=== PATIENT | female | born 1975 | race Caucasian/White ===

== ENCOUNTER 2020-07-27 17:49 | Inpatient (IN) | payer SELFPAY ==
[2020-07-27] MEDS ORDERED: HYDROmorphone 0.5 MG/0.5 ML Syringe IVPUSH ONE (19:01)
--- NOTE | 2020-07-27 19:04 | EDM.PDOC ---
ED HPI GENERAL MEDICAL PROBLEM - General Chief Complaint: Abdominal Pain Stated Complaint: ABD PAIN Time Seen by Provider: 07/27/20 18:50 Source of Information: Reports: Patient History Limitations: Reports: No Limitations - History of Present Illness INITIAL COMMENTS - FREE TEXT/NARRATIVE: 45-year-old female with lower abdominal pain for the past 2 days, localizing to the right lower quadrant. Decreased appetite, no fevers or chills, no significant bowel changes. She has type II diabetes and has been out of some of her medicines for the past 1 to 2 weeks while changing over insurance. Minimal nausea, no vomiting, no shortness of breath or chest pain. No urinary symptoms. Onset: Gradual Duration: Day(s): (2 days) Location: Reports: Abdomen (Right lower quadrant) Associated Symptoms: Reports: Other (Mild nausea). Denies: Fever/Chills Right Upper Abdominal Pain Score (Numeric/FACES): 3 - Related Data Allergies Allergy/AdvReac Type Severity Reaction Status Date / Time No Known Allergies Allergy Verified 07/27/20 18:37 Home Meds: Home Meds Empagliflozin [Jardiance] 10 mg PO DAILY 07/27/20 [History] Gabapentin [Neurontin] 900 mg PO BEDTIME 07/27/20 [History] Metoclopramide [Reglan] 5 mg PO BID 07/27/20 [History] SitaGLIPtin [Januvia] 100 mg PO DAILY 07/27/20 [History] atorvaSTATin [Lipitor] 40 mg PO BEDTIME 07/27/20 [History] glipiZIDE [Glucotrol] 10 mg PO BID 07/27/20 [History] lisinopriL [Lisinopril] 10 mg PO DAILY 07/27/20 [History] metFORMIN [Glucophage] 1,000 mg PO BIDMEALS 07/27/20 [History] Past Medical History Cardiovascular History: Reports: High Cholesterol, Hypertension Respiratory History: Reports: None Gastrointestinal History: Reports: Cholelithiasis, Other (See Below) Other Gastrointestinal History: umbilical hernia Genitourinary History: Reports: None 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 , Musculoskeletal History: Reports: Fracture Neurological History: Reports: None Psychiatric History: Reports: None Endocrine/Metabolic History: Reports: Diabetes, Type II, Obesity/BMI 30+ Hematologic History: Reports: None Immunologic History: Reports: None Oncologic (Cancer) History: Reports: None Dermatologic History: Reports: Other (See Below) Other Dermatologic History: skin rashes and yeast infections - Infectious Disease History Infectious Disease History: Reports: Chicken Pox - Past Surgical History HEENT Surgical History: Reports: Oral Surgery GI Surgical History: Reports: Cholecystectomy Female Surgical History: Reports: Section, Salpingo-Oophorectomy Social & Family History - Tobacco Use Tobacco Use Status *Q: Current Every Day Tobacco User Years of Tobacco use: 20 Packs/Tins Daily: 0.5 - Caffeine Use Caffeine Use: Reports: Coffee - Recreational Drug Use Recreational Drug Use: No ED ROS GENERAL - Review of Systems Review Of Systems: See Below Constitutional: Reports: Malaise. Denies: Fever, Chills HEENT: Reports: No Symptoms Respiratory: Denies: Shortness of Breath Cardiovascular: Denies: Chest Pain GI/Abdominal: Reports: Abdominal Pain, Nausea. Denies: Constipation, Diarrhea, Vomiting : Reports: No Symptoms Skin: Reports: No Symptoms Neurological: Reports: No Symptoms ED EXAM, GI/ABD - Physical Exam Exam: See Below Exam Limited By: No Limitations General Appearance: Alert, No Apparent Distress (Looks mildly uncomfortable but in no distress) Eyes: Bilateral: Normal Appearance (No jaundice) Head: Atraumatic Respiratory/Chest: Lungs Clear Cardiovascular: Regular Rate, Rhythm GI/Abdominal Exam: Normal Bowel Sounds, Soft, Guarding (Patient has guarding and significant rebound tenderness in the right lower quadrant), Rebound Neurological: Alert, Oriented Course - Vital Signs Last Recorded V/S: Last Vital Signs Temp 96.1 F L 07/27/20 22:11 Pulse 58 L 07/27/20 22:11 Resp 16 07/27/20 22:11 BP 124/69 07/27/20 22:11 Pulse Ox 97 07/27/20 22:11 - Orders/Labs/Meds Orders: Medication Orders Hydromorphone HCl (Dilaudid) 0.5 mg IVPUSH Q2H PRN PRN Reason: PAIN Dextrose/Lactated Ringer's (Dextrose 5%-Lactated Ringers) 1,000 mls @ 125 mls/hr IV ASDIRECTED [facility], [facility] Last Admin: 07/27/20 21:01 Dose: 125 mls/hr Documented by: LUIZROB Ampicillin Sodium/Sulbactam (Sodium 3 gm/ Sodium Chloride) 100 mls @ 200 mls/hr IV Q6H [facility] Last Admin: 07/27/20 21:38 Dose: Not Given Documented by: KARMEN Aztreonam 1 gm/ Sodium (Chloride) 50 mls @ 100 mls/hr IV Q8H [facility] Last Admin: 07/27/20 21:53 Dose: 100 mls/hr Documented by: KARMEN Sodium Chloride (Saline Flush) 10 ml FLUSH ASDIRECTED PRN PRN Reason: LINE PATENCY Labs: Laboratory Tests 07/27/20 07/27/20 Range/Units 19:16 19:16 WBC 12.1 H (4.5-11.0) K/uL RBC 4.98 (3.30-5.50) M/uL Hgb 13.7 (12.0-15.0) g/dL Hct 43.8 (36.0-48.0) % MCV 88 (80-98) fL MCH 28 (27-31) pg MCHC 31 L (32-36) % Plt Count 308 (150-400) K/uL Neut % (Auto) 64 (36-66) % Lymph % (Auto) 26 (24-44) % [place] % (Auto) 6 (2-6) % Eos % (Auto) 3 (2-4) % Baso % (Auto) 1 (0-1) % Sodium 139 L (140-148) mmol/L Potassium 3.9 (3.6-5.2) mmol/L Chloride 103 (100-108) mmol/L Carbon Dioxide 26 (21-32) mmol/L Anion Gap 13.9 (5.0-14.0) mmol/L BUN 12 (7-18) mg/dL Creatinine 0.9 (0.6-1.0) mg/dL Est Cr Clr Drug Dosing 57.89 mL/min Estimated GFR (MDRD) > 60 (>60) Glucose 96 (74-106) mg/dL Calcium 9.1 (8.5-10.1) mg/dL Total Bilirubin 0.9 (0.2-1.0) mg/dL AST 10 L (15-37) U/L ALT 20 (12-78) U/L Alkaline Phosphatase 48 (46-116) U/L Total Protein 7.3 (6.4-8.2) g/dL Albumin 3.3 L (3.4-5.0) g/dL Globulin 4.0 H (2.3-3.5) g/dL Albumin/Globulin Ratio 0.8 L (1.2-2.2) Lipase 71 L (73-393) U/L Meds: Medications Generic Name Dose Route Start Last Admin Trade Name Jamal PRN Reason Stop Dose Admin Hydromorphone HCl 0.5 mg 07/27/20 20:47 Dilaudid IVPUSH Q2H PRN PAIN Dextrose/Lactated Ringer's 1,000 mls @ 125 mls/hr 07/27/20 20:45 07/27/20 21:01 Dextrose 5%-Lactated Ringers IV 125 mls/hr ASDIRECTED MICHAEL Administration Ampicillin Sodium/Sulbactam 100 mls @ 200 mls/hr 07/27/20 22:00 07/27/20 21:38 Sodium 3 gm/ Sodium Chloride IV Not Given Q6H MICHAEL Aztreonam 1 gm/ Sodium 50 mls @ 100 mls/hr 07/27/20 21:30 07/27/20 21:53 Chloride IV 100 mls/hr Q8H MICHAEL Administration Sodium Chloride 10 ml 07/27/20 21:24 Saline Flush FLUSH ASDIRECTED PRN LINE PATENCY Discontinued Medications Generic Name Dose Route Start Last Admin Trade Name Jaaml PRN Reason Stop Dose Admin Hydromorphone HCl 0.5 mg 07/27/20 19:01 07/27/20 19:24 Dilaudid IVPUSH 07/27/20 19:02 0.5 mg ONETIME ONE Administration Sodium Chloride 1,000 mls @ 250 mls/hr 07/27/20 19:15 Normal Saline IV ASDIRECTED MICHAEL Ampicillin Sodium/Sulbactam 100 mls @ 200 mls/hr 07/27/20 20:12 07/27/20 21:04 Sodium 3 gm/ Sodium Chloride IV 07/27/20 20:41 200 mls/hr ONETIME ONE Administration Aztreonam 1 gm/ Sodium 50 mls @ 100 mls/hr 07/27/20 20:12 07/27/20 21:38 Chloride IV 07/27/20 20:41 Not Given ONETIME ONE Aztreonam 1 gm/ Sodium 50 mls @ 100 mls/hr 07/27/20 21:00 Chloride IV Q8H MICHAEL - Re-Assessments/Exams Free Text/Narrative Re-Assessment/Exam: 07/27/20 19:03 An IV will be started she will be given 0.5 mg of IV Dilaudid, CBC CMP lipase drawn. She will need a CT to rule out appendicitis. 07/27/20 22:53 IMPRESSION: Acute appendicitis without evidence of abscess/free air. No other acute abnormalities identified. Status post cholecystectomy. White count was just over 12,[address] confirmed appendicitis. She was given IV Unasyn and Azactam after discussing her case with Dr. Gotti. She will be admitted for presumptive appendectomy in the morning. Departure - Departure Time of Disposition: 21:42 Disposition: Admitted As Inpatient 68 Clinical Impression: Abdominal pain Qualifiers: Abdominal location: right lower quadrant Qualified Code(s): R10.31 - Right lower quadrant pain Appendicitis Qualifiers: Appendicitis type: acute appendicitis Acute appendicitis type: with localized peritonitis Appendicitis gangrene presence: without gangrene Appendicitis perforation presence: without perforation Appendicitis abscess presence: without abscess Qualified Code(s): K35.30 - Acute appendicitis with localized peritonitis, without perforation or gangrene - Discharge Information Sepsis Event Note (ED) - Evaluation Sepsis Screening Result: No Definite Risk - Focused Exam Vital Signs: Vital Signs Temp Pulse Resp BP Pulse Ox 07/27/20 18:33 97.8 F 67 16 146/71 H 98 07/27/20 18:12 97.8 F 67 16 146/71 H 98
[2020-07-27] MEDS ORDERED: Sodium Chloride 0.9% 1,000 ML IV SCH (19:15)
[2020-07-27] MEDS ORDERED: Ampicillin/Sulbactam Na 3 GM in Sodium Chloride 0.9% 100 ML IV ONE (20:12)
--- NOTE | 2020-07-27 20:13 | CRLCT ---
INDICATION: Right lower quadrant pain TECHNIQUE: CT abdomen and pelvis acquired without IV contrast. COMPARISON: None FINDINGS: Lower chest: Unremarkable. Liver: Unremarkable. Spleen: Unremarkable. Pancreas: Unremarkable. Gallbladder and bile ducts: Cholecystectomy. There is no biliary enlargement. Kidneys: Unremarkable. Adrenal glands: Unremarkable. GI tract: Appendix is abnormal. It is enlarged, with wall thickening and surrounding stranding/inflammatory change. This is consistent with acute appendicitis. Appendix best visualized on coronal images 16 through 26 of series 3. No appendicoliths identified. No evidence of abscess. No free air. Otherwise, bowel gas pattern is unremarkable. No evidence of obstruction. Vascular structures: Negative. No sign of aneurysm. Lymph nodes: Unremarkable. Miscellaneous: Small fat containing periumbilical hernia. No free air or significant free fluid. Pelvic Organs: Unremarkable. Bones: Unremarkable for age. IMPRESSION: Acute appendicitis without evidence of abscess/free air. No other acute abnormalities identified. Status post cholecystectomy. Please note that all CT scans at this facility use dose modulation, iterative reconstruction, and/or weight-based dosing when appropriate to reduce radiation dose to as low as reasonably achievable. Dictated by Chris Almanzar MD @ Jul 27 2020 8:01PM Signed by Dr. Chris Almanzar @ Jul 27 2020 8:12PM
[2020-07-27] MEDS ORDERED: HYDROmorphone 0.5 MG/0.5 ML Syringe IVPUSH PRN (20:47)
[2020-07-27] MEDS: Dextrose 5%-Lactated Ringers 1,000 ML IV SCH (21:01)
[2020-07-27] MEDS ORDERED: Sodium Chloride 0.9% 10 ML Syringe FLUSH PRN (21:24)
[2020-07-27] MEDS: Ampicillin/Sulbactam Na 3 GM in Sodium Chloride 0.9% 100 ML IV SCH (21:38)
[2020-07-28] MEDS: Ampicillin/Sulbactam Na 3 GM in Sodium Chloride 0.9% 100 ML IV SCH ×4 (03:12→23:11)
[2020-07-28] MEDS ORDERED: Bupivacaine 0.5% 50 ML MDV ONE (06:47)
[2020-07-28] MEDS ORDERED: Lidocaine 1% with EPINEPHrine 1:100,000 50 ML MDV ONE (06:47)
[2020-07-28] MEDS ORDERED: fentaNYL 250 MCG/5 ML SDV ONE (06:55)
[2020-07-28] MEDS ORDERED: Rocuronium 50 MG/5 ML Vial ONE (06:56)
[2020-07-28] MEDS ORDERED: Propofol 200 MG/20 ML SDV ONE (06:56)
[2020-07-28] MEDS ORDERED: Dexamethasone 4 MG/ML SDV ONE (06:56)
[2020-07-28] MEDS ORDERED: Glycopyrrolate 0.2 MG/ML 5 ML MDV ONE (06:56)
[2020-07-28] MEDS ORDERED: Succinylcholine 200 MG/10 ML MDV ONE (06:56)
[2020-07-28] MEDS ORDERED: Neostigmine Methylsulfate 1 MG/ML 5 ML Syringe ONE (06:56)
[2020-07-28] MEDS ORDERED: Ondansetron 4 MG/2 ML SDV ONE (06:56)
[2020-07-28] MEDS: Dextrose 5%-Lactated Ringers 1,000 ML IV SCH ×3 (07:27→23:16)
[2020-07-28] MEDS ORDERED: Ropivacaine 50 ML, dexAMETHasone 8 MG, EPINEPHrine 0.4 MG, Sodium Chloride 0.9% 27.6 ML NERVRT SCH ×4 (08:30)
[2020-07-28] MEDS ORDERED: ePHEDrine 50 MG/ML SDV ONE (08:41)
[2020-07-28] MEDS ORDERED: Sodium Chloride 0.9% 10 ML ONE (08:41)
--- NOTE | 2020-07-28 08:59 | PN ---
DATE OF SERVICE: 07/28/2020 SUBJECTIVE: Sugey has her consent signed for laparoscopic possible open laparotomy. She was admitted last evening. She is first case. Vital signs have been stable. Blood sugars have been monitored. She reports her pain on a pain scale of 1 to 10 is a zero. 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 REVIEW OF SYSTEMS: Remainder of review of systems negative for any pertinent positives and negatives. OBJECTIVE: GENERAL: Sugey Lou is a pleasant, 45-year-old female, alert, orientated. HEENT: Negative. NECK: Supple. HEART: Regular rate and rhythm. LUNGS: Clear. ABDOMEN: There is tenderness noted in the right lower quadrant. EXTREMITIES: Without peripheral edema. NEUROLOGIC: Intact. PSYCHIATRIC: Mood and affect appropriate. ASSESSMENT: Acute appendicitis. PLAN: After preoperative evaluation and discussion of possible risks and possible complications, she wished to proceed with surgical procedure. Orders to be written postoperatively. Frances Graham PA-C /[id number]
[2020-07-28] MEDS ORDERED: Acetaminophen 1,000 MG in Premix Bag 1 BAG IV ONE (09:45)
[2020-07-28] MEDS ORDERED: Glucagon,Human Recombinant 1 MG Vial IM PRN (09:46)
[2020-07-28] MEDS ORDERED: 50% Dextrose in Water 50 ML Syringe IVPUSH PRN (09:46)
[2020-07-28] MEDS: Insulin Lispro 100 Unit/ML 3 ML KwikPen SUBCUT ONE ×2 (09:50→11:55)
[2020-07-28] MEDS ORDERED: Ondansetron 4 MG/2 ML SDV IVPUSH PRN (11:00)
[2020-07-28] MEDS ORDERED: HYDROmorphone 1 MG/ML Syringe IV PRN (11:00)
[2020-07-28] MEDS ORDERED: Acetaminophen 500 MG Tab PO SCH (11:00)
[2020-07-28] MEDS: HYDROmorphone 0.5 MG/0.5 ML Syringe IVPUSH PRN ×3 (11:09→21:51)
[2020-07-28] MEDS: Acetaminophen 500 MG Tab PO SCH ×2 (15:33→21:52)
[2020-07-28] MEDS ORDERED: Benzocaine/Cetylpyridinium/Menthol Lozenge MUCMEM PRN (16:24)
[2020-07-28] MEDS: glipiZIDE 5 MG Tab PO SCH (17:14)
[2020-07-28] MEDS: metFORMIN 500 MG Tab PO SCH (17:15)
[2020-07-28] MEDS: Insulin Lispro 100 Unit/ML 3 ML KwikPen SUBCUT PRN ×2 (17:15→22:02)
[2020-07-28] MEDS: Ibuprofen 400 MG Tab PO SCH ×2 (17:57→23:11)
[2020-07-28] MEDS: Cyclobenzaprine 10 MG Tab PO PRN (17:58)
[2020-07-28] MEDS: atorvaSTATin 20 MG Tab PO SCH (21:51)
[2020-07-28] MEDS: Gabapentin 300 MG Cap PO SCH (21:52)
[2020-07-28] MEDS: Metoclopramide 10 MG Tab PO SCH (21:52)
[2020-07-29] MEDS: Ampicillin/Sulbactam Na 3 GM in Sodium Chloride 0.9% 100 ML IV SCH ×4 (03:40→22:18)
[2020-07-29] MEDS: Acetaminophen 500 MG Tab PO SCH (03:40)
[2020-07-29] MEDS: Ibuprofen 400 MG Tab PO SCH ×4 (05:32→18:15)
[2020-07-29] MEDS: Cyclobenzaprine 10 MG Tab PO PRN (07:42)
--- NOTE | 2020-07-29 08:36 | PN ---
DATE OF SERVICE: 07/29/2020 SUBJECTIVE: Sugey is postoperative day 1. Her pain has been controlled. She has been up ambulating. Vital signs are stable. Afebrile. Oral intake 1170. Urine output 2275. BRYAN drain put out 70 mL of a light red drainage. REVIEW OF SYSTEMS: Remainder of review of systems negative for any pertinent positives or negatives. OBJECTIVE: GENERAL: Sugey Lou is a pleasant 45-year-old female. She is alert and orientated. VITAL SIGNS: TPR is 96.3, 60, 16, and blood pressure 98/45. HEENT: Negative. NECK: Supple. HEART: Regular rate and rhythm. LUNGS: Clear. ABDOMEN: Dressings is dry and intact. BRYAN drain as above. EXTREMITIES: Without peripheral edema. LABORATORY DATA: Blood sugar last evening was 226. ASSESSMENT: Laparoscopic appendectomy with drainage of periappendiceal abscess for perforated appendicitis with periappendiceal abscess. DATE OF PROCEDURE: 07/28/2020. SURGEON: Danny Gotti MD. PLAN: 1. Discontinue D5 LR. 2. Lactated Ringer's IV 80 mL per hour. 3. Tylenol No. 3 one every 4 hours p.r.n. pain per patient's request. 4. Milk of Mag b.i.d. 5. Continue use of incentive spirometer. 6. We will evaluate p.r.n. or in the a.m. Frances Graham PA-C /[id number]
[2020-07-29] MEDS: glipiZIDE 5 MG Tab PO SCH ×2 (08:51→16:20)
[2020-07-29] MEDS: Magnesium Hydroxide 400 MG/5 ML Susp 30 ML Cup PO SCH ×2 (08:51→21:37)
[2020-07-29] MEDS: Metoclopramide 10 MG Tab PO SCH ×2 (08:52→21:37)
[2020-07-29] MEDS: metFORMIN 500 MG Tab PO SCH ×2 (08:52→16:21)
[2020-07-29] MEDS: Lactated Ringers 1,000 ML IV SCH (08:56)
[2020-07-29] MEDS: Lisinopril 10 MG Tab PO SCH (10:09)
[2020-07-29] MEDS: Gabapentin 300 MG Cap PO SCH (21:36)
[2020-07-29] MEDS: atorvaSTATin 20 MG Tab PO SCH (21:36)
[2020-07-29] MEDS: Acetaminophen/Codeine 300-30 MG Tab PO PRN (22:21)
[2020-07-30] MEDS ORDERED: Amoxicillin/Clavulanate K 875-125 MG Tab PO SCH
[2020-07-30] MEDS: Ibuprofen 400 MG Tab PO SCH ×3 (00:46→11:26)
[2020-07-30] MEDS: Lactated Ringers 1,000 ML IV SCH (01:09)
[2020-07-30] MEDS: Ampicillin/Sulbactam Na 3 GM in Sodium Chloride 0.9% 100 ML IV SCH ×2 (04:03→09:22)
[2020-07-30] MEDS: Acetaminophen/Codeine 300-30 MG Tab PO PRN (07:53)
[2020-07-30] MEDS: Magnesium Hydroxide 400 MG/5 ML Susp 30 ML Cup PO SCH (09:22)
[2020-07-30] MEDS: glipiZIDE 5 MG Tab PO SCH (09:24)
[2020-07-30] MEDS: metFORMIN 500 MG Tab PO SCH (09:24)
[2020-07-30] MEDS: Metoclopramide 10 MG Tab PO SCH (09:24)
[2020-07-30] MEDS: Lisinopril 10 MG Tab PO SCH (10:43)
--- NOTE | 2020-07-31 12:17 | DISCH ---
FINAL DIAGNOSIS: Acute perforated appendicitis with periappendiceal abscess. SECONDARY DIAGNOSES: 1. Type 2 diabetes mellitus. 2. Hyperlipidemia. 3. Obesity. 4. Hypertension. 5. Impaired gastric emptying, likely secondary to type 2 diabetes mellitus. OPERATIVE PROCEDURE: Done on 07/28/2020, diagnostic laparoscopy with laparoscopic appendectomy and drainage of periappendiceal abscess. SUMMARY: This is a 45-year-old female presenting with an acute appendicitis. The patient was admitted overnight with IV antibiotics, underwent a laparoscopic appendectomy. She did have a periappendiceal abscess which was drained concurrently. Postoperatively, she is eating and satisfactorily tolerating medications and will be discharged home on Tylenol No. 3 one q.4 hours. She will be given 2 doses of Augmentin to take tomorrow after completing the IV antibiotics today, and followup will be with Frances Graham at [facility] on 08/04/2020. The patient is morbidly obese and has at this point a full-blown metabolic syndrome. Given this, she began a discussion regarding bariatric surgery, and the patient will be obtaining insurance in August. We will see the patient next with both Frances Graham and Kalli to initiate the bariatric surgery counselling sequence. /[id number]
--- NOTE | 2020-08-07 12:32 | OR ---
DATE OF PROCEDURE: 07/28/2020 SURGEON: Danny Gotti MD PREOPERATIVE DIAGNOSIS: Acute appendicitis. POSTOPERATIVE DIAGNOSIS: Perforated appendicitis with periappendiceal abscess. OPERATIVE PROCEDURE: Diagnostic laparoscopy with appendectomy and drainage of periappendiceal abscess ([id number]). ANESTHESIA: General. PHYSICIAN ASSISTANT PRIMARY CARE: Frances Graham PA-C INDICATIONS FOR PROCEDURE: This is a 45-year-old female presenting with a 24-hour history of abdominal pain. Workup including CAT scan was consistent with acute appendicitis. Plan is to proceed with a laparoscopic and if necessary, open appendectomy. Potential risks of the procedure including bleeding, infection, leaks from various GI tract closures, need for a more extensive procedure than appendectomy were all reviewed, and the patient wishes to proceed. DETAILS OF PROCEDURE: The patient was taken to the operating room. After general endotracheal anesthesia was induced, the abdomen was prepped and draped and a Gtz catheter was inserted. Three fingerbreadths superior into the left of the umbilicus, a transverse incision was made and peritoneal cavity entered under direct vision with an Optiview trocar, inflated at 50 mmHg pressure with CO2. Laparoscope was then reinserted and no underlying trocar insertion site injuries were seen. Following this, 12 mm trocars were placed in the left lower quadrant and right upper quadrant and bilateral transversus abdominis plane blocks were placed. the right lower abdomen, there was an obvious irrigated collection of purulent material consistent with a periappendiceal abscess. This was evacuated and cultures were obtained. The appendix was quite densely adherent to the area around the ileocecal valve and distal most small bowel. This was eventually freed up with a combination of blunt and Harmonic scalpel dissection. The base of the appendix could then be identified at the junction of the cecum and was divided with a LUIS M purple load. The mesoappendix was then sequentially divided with a combination of mesenteric LUIS M loads and Harmonic scalpel. The mesoappendix was then placed in a specimen bag and retrieved through the left lower quadrant trocar site. At that point, no further problems were noted. There appeared to be sound staple line at the cecal base and no bleeding or other problems were noted. A Micheal-Virgen drain was taken out through the trocar site which was then brought through the right flank and draped across the area of the appendiceal stump and from there down toward the pelvis. The trocars were then sequentially removed. The fascia at each of the 12 mm sites was closed with 0 Vicryl stitch and the skin with 4-0 Vicryl skin stitch. Dressing was applied. The patient was taken to the recovery room in satisfactory condition. Physician electrician's assistant, Frances Graham, played an essential role in assisting in this case helping to position the patient, retracting structures as needed, as well as suturing and cutting sutures when indicated. Her presence improved patient safety and decreased the operative time. Danny Gotti MD /[id number]
== END 2020-07-30 12:28 | disposition home or self-care (01) | DRG 340 ==
LOC: JP.ED 17:49 → JP.MS 20:36
PROVIDERS: ADMIT Surgery; ATTEND Surgery
PROC: 0DTJ4ZZ Resection of Appendix, Percutaneous Endoscopic Approach (ICD-10-PCS; principal; 2020-07-28)
PROC: 0W9G4ZZ Drainage of Peritoneal Cavity, Percutaneous Endoscopic Approach (ICD-10-PCS; 2020-07-28)
PROC: 0DJD4ZZ Inspection of Lower Intestinal Tract, Percutaneous Endoscopic Approach (ICD-10-PCS; 2020-07-28)
DX: K35.33 Acute appendicitis with perforation, localized peritonitis, and gangrene, with abscess (principal); E78.5 Hyperlipidemia, unspecified; I10 Essential (primary) hypertension; E66.01 Morbid (severe) obesity due to excess calories; E88.81 Metabolic syndrome and other insulin resistance; F17.200 Nicotine dependence, unspecified, uncomplicated; E78.00 Pure hypercholesterolemia, unspecified; K80.20 Calculus of gallbladder without cholecystitis without obstruction; Z90.49 Acquired absence of other specified parts of digestive tract
CPT/HCPCS: 36415; 74176; 80053; 82962; 83690; 85025; 87070; 87075; 87205; 88304; 94762; 96365; 96375; 99284; 99285-25; A9270-GY; J0131; J0171; J0295; J0330; J1100; J1170; J1815; J2405; J2704; J2710; J2795; J3010; J3490; J7050; J7120; J7121; U0002